=== PATIENT | female | born 1980 | race Hispanic/Latino ===

== ENCOUNTER 2018-01-17 18:18 | Inpatient (IN) | payer OTHER, MEDICAID ==
[2018-01-17] MEDS ORDERED: LACTATED RINGERS 1,000 ML IV ONE (19:27)
[2018-01-17] MEDS ORDERED: ZOFRAN IV ONE (19:28)
[2018-01-17 20:11] LABS: Hematocrit 40.5 % (30.3-42.9); Hemoglobin 12.9 gm/dl (10.1-14.3); Mean Corpuscular HGB Conc 32 % (30-34); Mean Corpuscular Hemoglobin 29 pg (28-32); Mean Corpuscular Volume 90 fl (79-97); Platelet Count 277 K/mm3 (140-440); Red Blood Count 4.53 M/mm3 (3.65-5.03); Red Cell Distribution Width 14.2 % (13.2-15.2)
[2018-01-17] MEDS: LACTATED RINGERS 1,000 ML IV SCH (20:16)
[2018-01-17 20:18] LABS: Bacteria,Urine 1+ /HPF (Negative); Bilirubin,Urine NEG (Negative); Blood,Urine NEG (Negative); Color,Urine Yellow (Yellow); Protein,Urine <15 mg/dL mg/dL (Negative)
[2018-01-17 20:30] LABS: Amphetamine Screen,Urine PRESUMPTIVE NEGATIVE; Benzodiazepines Screen,Urine PRESUMPTIVE NEGATIVE; Cannabinoid Screen,Urine PRESUMPTIVE NEGATIVE; Cocaine Screen,Urine PRESUMPTIVE NEGATIVE; Methadone Screen,Urine PRESUMPTIVE NEGATIVE; Opiate Screen,Urine PRESUMPTIVE NEGATIVE
[2018-01-17 20:35] LABS: Alanine Aminotransferase 81 units/L (7-56); Uric Acid 7.5 mg/dL (3.5-7.6)
[2018-01-17] MEDS: STADOL IV PRN (21:00)
[2018-01-17 21:47] LABS: Bilirubin,Urine NEG (Negative); Blood,Urine NEG (Negative); Color,Urine Yellow (Yellow); Mucus,Urine FEW /HPF; Renal Epithelial Cells,Urine 1 /LPF; Urobilinogen,Urine < 2.0 mg/dL (<2.0)
[2018-01-17] MEDS ORDERED: AMBIEN PO PRN (22:44)
[2018-01-17] MEDS: PROCARDIA XL PO SCH (23:15)
--- NOTE | 2018-01-18 04:50 | History and Physical Report ---
History of Present Illness Date of examination: 01/18/18 Date of admission: 01/17/18 20:03 Chief complaint: nausea and vomiting History of present illness: 37y/o @ 35+4 weeks with minimal care presents to triage with the complaint of nausea and vomiting. She is also experiencing irregular contractions. She denies vaginal bleeding or leakage of fluid. records are not available. The patient admits to a history of methamphetamine use approximately 2 weeks ago. During her evaluation in triage, the patient was noted to have elevated blood pressures. The patient was admitted for preeclampsia evaluation. LFTs slightly elevated with a normal platelet count. Past History Past Medical History: no pertinent history Past Surgical History: no surgical history Social history: smoking, other (methamphetamine) - Obstetrical History Expected Date of Delivery: 02/17/18 Actual Gestation: 35 Week(s) 5 Day(s) : 4 Para: 1 Hx # Term Pregnancies: 1 Number of Pregnancies: 0 Spontaneous Abortions: 0 Induced : 2 Number of Living Children: 1 Medications and Allergies Allergies Allergy/AdvReac Type Severity Reaction Status Date / Time No Known Allergies Allergy Verified 01/17/18 19:01 Active Meds: Active Medications Butorphanol Tartrate (Stadol) 2 mg IV Q4HR PRN PRN Reason: Labor Pain Last Admin: 01/17/18 21:00 Dose: 2 mg Lactated Ringer's (Lactated Ringers) 1,000 mls @ 125 mls/hr IV DIRECT [facility] Last Admin: 01/17/18 20:16 Dose: 125 mls/hr Nifedipine (Procardia Xl) 30 mg PO QDAY JACOB Last Admin: 01/17/18 23:15 Dose: 30 mg Zolpidem Tartrate (Ambien) 10 mg PO QHS PRN PRN Reason: Insomnia Last Admin: 01/17/18 23:15 Dose: 10 mg Review of Systems All systems: negative Gastrointestinal: abdominal pain, nausea, vomiting Genitourinary: contractions, no vaginal bleeding, no leakage of fluid - Vital Signs Vital signs: Vital Signs Pulse BP 79 182/103 01/17/18 19:11 01/17/18 19:11 Temp Pulse Resp BP Pulse Ox 98.0 F 77 18 132/78 01/17/18 19:45 01/18/18 04:32 01/17/18 21:00 01/18/18 04:32 - Physical Exam Breasts: Positive: deferred Cardiovascular: Regular rate Lungs: Positive: Clear to auscultation Abdomen: Positive: normal appearance Results Result Diagrams: 01/17/18 19:15 01/17/18 19:15 Abnormal lab results 01/17/18 01/17/18 Range/Units 19:15 19:15 AST 64 H (5-40) units/L ALT 81 H (7-56) units/L Lactate Dehydrogenase 323 H (91-180) units/L Urine pH 8.0 H (5.0-7.0) All other labs normal. Assessment and Plan - Patient Problems (1) Elevated blood pressure affecting , antepartum Current Visit: Yes Status: Acute Plan to address problem: admit for observation will initiate 24hr urine collection blood pressure monitoring (2) Nausea and vomiting Current Visit: Yes Status: Acute (3) Limited care, antepartum Current Visit: Yes Status: Acute
[2018-01-18] MEDS: STADOL IV PRN ×5 (05:45→23:52)
[2018-01-18] MEDS: LACTATED RINGERS 1,000 ML IV SCH ×2 (05:46→13:53)
[2018-01-18 07:58] LABS: BUN/Creatinine Ratio 9; Blood Urea Nitrogen 8 mg/dL (7-17); Calcium 8.2 mg/dL (8.4-10.2); Hemolysis Index 10
--- NOTE | 2018-01-18 08:47 | Progress Note ---
Assessment and Plan HD 2 with nausea and vomiting at 35 weeks. Patient has elevated liver enzymes that may be consistent with cholecystitis and or pancreatitis. Will order amylase and lipase to evaluate. Patient has no proteinuria in the face of elevated blood pressures. Continue current management Subjective - Subjective Date of service: 01/18/18 Principal diagnosis: IUP at 35 weeks. Nausea and vomiting Interval history: Patient is a 37 year old who presents at 35 weeks with nausea and vomiting. Patient has had one visit prior to this admission. She has a history of labor and possible hypertension Patient reports: movement normal Objective - Vital Signs Vital Signs: Vital Signs - 12hr 01/17/18 01/17/18 01/17/18 21:00 21:15 21:30 Temperature Pulse Rate 73 83 Respiratory 18 Rate Blood Pressure 160/91 144/79 Blood Pressure [Left] 01/17/18 01/17/18 01/17/18 22:01 22:31 23:02 Temperature Pulse Rate 75 69 69 Respiratory Rate Blood Pressure 139/85 157/86 162/77 Blood Pressure [Left] 01/17/18 01/18/18 01/18/18 23:32 00:01 00:32 Temperature Pulse Rate 74 84 91 H Respiratory Rate Blood Pressure 150/75 136/75 139/79 Blood Pressure [Left] 01/18/18 01/18/18 01/18/18 01:06 01:31 02:01 Temperature Pulse Rate 98 H 96 H 97 H Respiratory Rate Blood Pressure 132/77 137/80 137/83 Blood Pressure [Left] 01/18/18 01/18/18 01/18/18 02:31 03:01 03:32 Temperature Pulse Rate 99 H 93 H 83 Respiratory Rate Blood Pressure 133/78 132/76 120/74 Blood Pressure [Left] 01/18/18 01/18/18 01/18/18 04:01 04:32 05:01 Temperature Pulse Rate 79 77 79 Respiratory Rate Blood Pressure 130/67 132/78 143/75 Blood Pressure [Left] 01/18/18 01/18/18 01/18/18 05:40 06:01 06:31 Temperature Pulse Rate 82 87 81 Respiratory Rate Blood Pressure 124/70 128/65 123/68 Blood Pressure [Left] 01/18/18 01/18/18 01/18/18 07:01 07:33 07:37 Temperature 98.5 F Pulse Rate 87 80 77 Respiratory 18 Rate Blood Pressure 120/67 108/58 Blood Pressure 110/58 [Left] 01/18/18 01/18/18 07:40 08:40 Temperature Pulse Rate 77 81 Respiratory Rate Blood Pressure 110/58 126/64 Blood Pressure [Left] - Exam Breasts: deferred Lungs: Clear to auscultation Abdomen: Present: normal appearance, soft, normal bowel sounds Uterus: Present: normal, firm FHR: auscultation normal - Labs Labs: Abnormal Labs 01/17/18 01/17/18 01/18/18 19:15 19:15 07:10 Sodium 136 L Carbon Dioxide 20 L Calcium 8.2 L AST 64 H ALT 81 H Lactate Dehydrogenase 323 H Urine pH 8.0 H Laboratory Results - last 24 hr 01/17/18 01/17/18 01/17/18 19:15 19:15 19:15 WBC 10.9 RBC 4.53 Hgb 12.9 Hct 40.5 MCV 90 MCH 29 MCHC 32 RDW 14.2 Plt Count 277 Sodium Potassium Chloride Carbon Dioxide Anion Gap BUN Creatinine Estimated GFR BUN/Creatinine Ratio Glucose Uric Acid Calcium AST ALT Lactate Dehydrogenase Urine Color Yellow Urine Turbidity Clear Urine pH 8.0 H Ur Specific [place] 1.013 Urine Protein <15 mg/dl Urine Glucose (UA) Neg Urine Ketones Neg Urine Blood Neg Urine Nitrite Neg Urine Bilirubin Neg Urine Urobilinogen 2.0 Ur Leukocyte Esterase Mod Urine WBC (Auto) 1.0 Urine RBC (Auto) 3.0 U Epithel Cells (Auto) 3.0 Urine Bacteria (Auto) 1+ Ur Renal Epithelial Cell Urine Mucus Urine Opiates Screen Presumptive negative Urine Methadone Screen Presumptive negative Ur Barbiturates Screen Presumptive negative Ur Phencyclidine Scrn Presumptive negative Ur Amphetamines Screen Presumptive negative U Benzodiazepines Scrn Presumptive negative Urine Cocaine Screen Presumptive negative U Marijuana (THC) Screen Presumptive negative Drugs of Abuse Note Disclamer 01/17/18 01/17/18 01/18/18 19:15 21:18 07:10 WBC RBC Hgb Hct MCV MCH MCHC RDW Plt Count Sodium 136 L Potassium 4.3 Chloride 105.2 Carbon Dioxide 20 L Anion Gap 15 BUN 8 Creatinine 0.8 0.9 Estimated GFR > 60 > 60 BUN/Creatinine Ratio 9 Glucose 70 Uric Acid 7.5 Calcium 8.2 L AST 64 H ALT 81 H Lactate Dehydrogenase 323 H Urine Color Yellow Urine Turbidity Clear Urine pH 7.0 Ur Specific [place] 1.016 Urine Protein 30 mg/dl Urine Glucose (UA) Neg Urine Ketones Neg Urine Blood Neg Urine Nitrite Neg Urine Bilirubin Neg Urine Urobilinogen < 2.0 Ur Leukocyte Esterase Neg Urine WBC (Auto) 5.0 Urine RBC (Auto) 4.0 U Epithel Cells (Auto) 4.0 Urine Bacteria (Auto) Ur Renal Epithelial Cell 1 Urine Mucus Few Urine Opiates Screen Urine Methadone Screen Ur Barbiturates Screen Ur Phencyclidine Scrn Ur Amphetamines Screen U Benzodiazepines Scrn Urine Cocaine Screen U Marijuana (THC) Screen Drugs of Abuse Note
[2018-01-18] MEDS: PROCARDIA XL PO SCH (10:08)
[2018-01-18] MEDS: PEPCID IV SCH (10:20)
[2018-01-18 12:20] LABS: Lipase 19 units/L (13-60)
[2018-01-19] MEDS: PEPCID IV SCH ×3 (01:48→22:04)
[2018-01-19] MEDS: LACTATED RINGERS 1,000 ML IV SCH ×3 (01:48→19:09)
[2018-01-19] MEDS: PROCARDIA XL PO SCH (10:04)
[2018-01-19] MEDS: PHENERGAN PO PRN ×2 (10:13→18:01)
[2018-01-19] MEDS: STADOL IV PRN ×3 (10:16→21:02)
[2018-01-19] MEDS ORDERED: BRETHINE SUB-Q ONE ×2 (10:38→14:00)
--- NOTE | 2018-01-19 11:03 | Event Note ---
Date: 01/19/18 Called by nursing staff because patient began having contractions. Per nurse, patient was dilated 3cm. Terbutaline ordered for uterine relaxation. Staff concerned about NICU diversion status. But I advised staff that we will continue with current management until patient declares herself in labor.
[2018-01-20] MEDS: STADOL IV PRN (00:26)
[2018-01-20] MEDS ORDERED: STADOL IV PRN (00:29)
[2018-01-20] MEDS ORDERED: POLYCILLIN/NS 2 GM/100 ML 2 GM/100 ML BAG IV ONE ×2 (00:36→00:38)
[2018-01-20] MEDS: LACTATED RINGERS 1,000 ML IV SCH ×2 (03:08→05:04)
[2018-01-20 03:19] LABS: Hemoglobin 12.7 gm/dl (10.1-14.3); Mean Corpuscular HGB Conc 33 % (30-34); Mean Corpuscular Hemoglobin 28 pg (28-32); Mean Corpuscular Volume 86 fl (79-97); Platelet Count 236 K/mm3 (140-440); Red Blood Count 4.56 M/mm3 (3.65-5.03); Red Cell Distribution Width 14.3 % (13.2-15.2)
[2018-01-20] MEDS ORDERED: POLYCILLIN/NS 1 GM/50 ML 1 GM/50 ML BAG IV SCH (04:30)
[2018-01-20] MEDS ORDERED: PITOCin/NS 30 UNIT/500ML 30,000 MILLIUNITS/500 ML BAG IV ONE (04:43)
[2018-01-20] MEDS ORDERED: PITOCin/NS 20 UNIT/1000ML DRIP 20 UNITS/1,000 ML BAG IV SCH (05:00)
[2018-01-20] MEDS ORDERED: XYLOCAINE 2% INFILTRATI ONE ×2 (07:14→07:15)
--- NOTE | 2018-01-20 07:45 | Event Note ---
Date: 01/20/18 Received call from nursing staff that patient had SROM at 11:30 last evening. Patient is still 3 cm dilated. Will now treat and manage as active labor. Begin pitocin augmentation. Anticipate .
--- NOTE | 2018-01-20 07:48 | Procedure Note ---
OB Delivery Note - Delivery Date of Delivery: 01/20/18 Surgeon: MARITZA TOLBERT Estimated blood loss: 200cc - Vaginal Delivery presentation: vertex Delivery position: OA Intrapartum events: no care (minimal), labor-<37 weeks, PROM-> 1hr before delivery, gestational hypertension Delivery induction: none Delivery augmentation: pitocin Delivery monitor: external FHT, external uterine Route of delivery: Delivery placenta: spontaneous Delivery cord: 3 umbilical vessels Episiotomy: none Delivery laceration: 1st degree Delivery repair: chromic Anesthesia: none Delivery comments: Viable male delivered over intact perineum. No nuchal cord. Cord clamped and cut and placed on warmer as mother did not want baby on chest. Placenta delivered spontaneously and intact with 3vc. 1st degree laceration repaired with 2.-0 chromic. Excellent hemostasis. Patient tolerated procedure well. - Infant A at 1 minute: 8 at 5 minutes: 9 Gender: Male (6 pounds 3 ounces 2811 grams)
[2018-01-20] MEDS: PROCARDIA XL PO SCH (09:02)
[2018-01-20] MEDS: PEPCID IV SCH (09:03)
[2018-01-20] MEDS ORDERED: LANSINOH TP PRN (10:05)
[2018-01-20] MEDS ORDERED: TUCKS PAD TP PRN (10:05)
[2018-01-20] MEDS ORDERED: DULCOLAX PR PRN (10:05)
[2018-01-20] MEDS ORDERED: BENADRYL PO PRN (10:05)
[2018-01-20] MEDS ORDERED: TYLENOL PO PRN (10:05)
[2018-01-20] MEDS ORDERED: MILK OF MAGNESIA PO PRN (10:05)
[2018-01-20] MEDS: NORCO 5/325 PO PRN (10:35)
[2018-01-20] MEDS ORDERED: SODIUM CHLORIDE FLUSH SYRINGE 10 ML IV PRN (11:00)
[2018-01-20 11:04] LABS: Uric Acid 7.1 mg/dL (3.5-7.6)
[2018-01-20] MEDS: MOTRIN PO SCH ×3 (12:25→23:48)
[2018-01-20] MEDS: PRENATAL VITAMIN PO SCH (12:25)
[2018-01-20 20:27] LABS: Hematocrit 30.3 % (30.3-42.9); Hemoglobin 9.8 gm/dl (10.1-14.3)
[2018-01-20] MEDS: COLACE PO SCH (23:48)
[2018-01-21] MEDS: MOTRIN PO SCH ×5 (06:07→23:09)
[2018-01-21] MEDS: NORCO 5/325 PO PRN (08:08)
[2018-01-21] MEDS: PROCARDIA XL PO SCH (11:59)
[2018-01-21] MEDS: PRENATAL VITAMIN PO SCH (12:00)
[2018-01-21] MEDS: ZOFRAN IV PRN (14:51)
--- NOTE | 2018-01-21 16:13 | Progress Note ---
Assessment and Plan PPD 1 s/p at 36 weeks. Patient is complaining of nausea and inability to eat although she has not had any active vomiting. Patient has palpable mass in mid epigastric area that is tender to touch. Will consult general surgery for possible hernia or other abdominal pathology. Subjective - Subjective Date of service: 01/21/18 Principal diagnosis: IUP at 35 weeks. Nausea and vomiting Interval history: Patient is a 37 year old who presents at 35 weeks with nausea and vomiting. Patient has had one visit prior to this admission. She has a history of labor and possible hypertension Patient reports: voiding normally, appetite poor, nauseated, other (not feeling well) : doing well Objective - Vital Signs Latest vital signs: Vital Signs Temp Pulse Resp BP BP Pulse Ox 01/21/18 08:08 20 01/21/18 07:47 97.8 F 54 L 16 135/77 98 01/21/18 00:22 64 137/76 95 01/21/18 00:20 98.7 F 68 20 137/76 95 01/20/18 16:37 97.9 F 58 L 20 147/79 98 Intake and Output 01/21/18 01/21/18 01/21/18 06:59 14:59 22:59 Intake Total 420 360 Balance 420 360 Intake: Oral 420 360 Other: Total, Intake Amount 200 360 # Voids Void 1 1 - Exam Breasts: Present: deferred Cardiovascular: Present: Regular rate, Normal S1, Normal S2 Lungs: Present: Clear to auscultation Abdomen: Present: normal appearance, soft, mass (palpable round mass in mid epigastric region) Uterus: Present: normal, fundal height below umbilicus Extremities: Present: normal Deep Tendon Reflex Grade: Normal +2 - Labs Labs: Abnormal lab results 01/20/18 Range/Units 19:49 Hgb 9.8 L (10.1-14.3) gm/dl
--- NOTE | 2018-01-21 16:54 | Consultation ---
History of Present Illness Consult date: 01/21/18 Requesting physician: MARITZA TOLBERT Chief complaint: ABD PAIN - History of present illness History of present illness: 37 yo F who presented to the hospital to deliver her baby. She has a spontaneous vaginal yesterday. The patient c/o epigastric abd pain, which is sharp, constant and will radiate to both sides of her abdomen at times. At times this feels like a "knot". The pain has been present throughout and has caused nausea. She states she felt like this was heartburn and treated with all types of antacids without relief. She denies having fevers. She did not have pain like this prior to her . She c/o that the nausea inhibits her from eating at times. She states the pain is present before eating and is exacerbated by eating. She denies taking NSAIDs, ASA. Past History Past Medical History: No medical history Past Surgical History: No surgical history Social history: smoking (1 pack per day), other (methamphetamine). denies: alcohol abuse Family history: no significant family history Medications and Allergies Allergies Allergy/AdvReac Type Severity Reaction Status Date / Time No Known Allergies Allergy Verified 01/17/18 19:01 Home Medications Medication Instructions Recorded Confirmed Last Taken Type Pnv,Calcium 72/Iron/Folic Acid 1 tab PO DAILY 01/19/18 01/19/18 01/17/18 09:00 History [Preplus Ca-Fe 27 mg-FA 1 mg Tb] HYDROcodone/ACETAMINOPHEN [[place] 1 each PO Q6H #20 tablet 01/20/18 Unknown Rx 5-325 Tablet] Ibuprofen [Motrin] 600 mg PO Q8H PRN #30 tablet 01/20/18 Unknown Rx Active Meds: Active Medications Acetaminophen (Tylenol) 650 mg PO Q4H PRN PRN Reason: Pain MILD(1-3)/Fever >100.5/VÁZQUEZ Acetaminophen/Hydrocodone Bitart ([place] 5/325) 2 each PO Q6H PRN PRN Reason: Pain, Moderate (4-6) Last Admin: 01/21/18 08:08 Dose: 2 each Bisacodyl (Dulcolax) 10 mg [place] BID PRN PRN Reason: Constipation Diphenhydramine HCl (Benadryl) 25 mg PO Q6H PRN PRN Reason: Itching Docusate Sodium (Colace) 100 mg PO BID [facility] Last Admin: 01/20/18 23:48 Dose: 100 mg Oxytocin/Sodium Chloride (Pitocin/Ns 30 Unit/500ml) 30,000 milliunits in 500 mls @ 1 mls/hr IV DIRECT ONE; 1 MILLIUNITS/MIN PRN Reason: Protocol Stop: 02/10/18 00:42 Last Admin: 01/20/18 04:50 Dose: 4 milliunits/min, 4 mls/hr Ibuprofen (Motrin) 600 mg PO Q6H [facility] Last Admin: 01/21/18 11:58 Dose: 600 mg Magnesium Hydroxide (Milk Of Magnesia) 30 ml PO HS PRN PRN Reason: Constipation Multi-Ingredient Ointment (Lansinoh) 1 applic TP PRN PRN PRN Reason: Sore Nipples Multivitamins/Iron/Calcium ( Vitamin) 1 each PO QDAY [facility] Last Admin: 01/21/18 12:00 Dose: 1 each Nifedipine (Procardia Xl) 30 mg PO QDAY [facility] Last Admin: 01/21/18 11:59 Dose: 30 mg Ondansetron HCl (Zofran) 4 mg IV Q8H PRN PRN Reason: Nausea And Vomiting Last Admin: 01/21/18 14:51 Dose: 4 mg Promethazine HCl (Phenergan) 25 mg PO Q6H PRN PRN Reason: Nausea And Vomiting Sodium Chloride (Sodium Chloride Flush Syringe 10 Ml) 10 ml IV PRN PRN PRN Reason: flush Witch Shannan/Glycerin (Tucks Pad) 1 each TP PRN PRN PRN Reason: Hemorrhoid/cleansing/soothing Last Admin: 01/21/18 06:08 Dose: 1 each Review of Systems All systems: negative (10 pt ROS was performed and negative except for that listed in HPI) Exam Vital Signs Pulse BP 79 182/103 01/17/18 19:11 01/17/18 19:11 Narrative exam: Gen: AAOx3. NAD ENT: no scleral icterus or conjunctival pallor. poor dentition CV: S1 ,S2 +, no m/r/g Resp: CTAB, no w/r/r Abd: soft, ND, fullness in lower abd and soreness. Point TTP in epigastrum inferior to xyphoid process. No rebound, rigidity, guarding. No TTP in RUQ. No palpable masses. Ext: no c/c/e Results - Labs 01/20/18 19:49 01/18/18 07:10 Abnormal lab results 01/20/18 Range/Units 19:49 Hgb 9.8 L (10.1-14.3) gm/dl Assessment and Plan 37 yo F with epigastric abd pain Plan: 1. ? gastric related vs gallbladder related pain. Will obtain RUQ u/s while patient is admitted 2. continue current diet 3. PRN nausea and pain control 4. add protonix Daily 5. will likely need outpatient GI follow up 6. will see the patient in am and discuss u/s results Thank you for this consultation, please call with questions or concerns.
[2018-01-21] MEDS: PHENERGAN PO PRN (21:35)
--- NOTE | 2018-01-21 21:42 | Ultrasound Report ---
FINAL REPORT PROCEDURE: US ABDOMEN LIMITED TECHNIQUE: Real-time sonography in multiple planes of the gallbladder fossa and CBD with imaging of the adjacent liver, pancreas, and right kidney was performed with image documentation. CPT 35756 HISTORY: epigastric abd pain COMPARISON: No prior studies are available for comparison. FINDINGS: Liver: Liver echotexture is heterogeneous. There is no discrete mass.. Gallbladder: There are tiny echogenic foci in the gallbladder which could be polyps. There are no definite stones. There is a possible 8 millimeter sludge ball in the gallbladder neck. Gallbladder wall is thickened at 3.8 millimeters. There is no pericholecystic fluid.. Intrahepatic bile ducts: Normal . Extrahepatic bile ducts: Common bile duct is normal in caliber.. Pancreas: Normal as visualized with suboptimal depiction of the pancreatic tail. Right kidney: Normal echotexture. No focal renal mass, calculus, or hydronephrosis. Other: No free fluid. IMPRESSION: There are tiny echogenic foci in the gallbladder which could be polyps. There are no definite stones. There is a possible 8 millimeter sludge ball in the gallbladder neck. Gallbladder wall is thickened at 3.8 millimeters. There is no pericholecystic fluid.. Common bile duct is normal in caliber..
[2018-01-21] MEDS ORDERED: MORPHINE IV PRN (23:49)
[2018-01-22] MEDS: D5LR 1,000 ML IV SCH ×3 (01:35→23:03)
[2018-01-22] MEDS: PHENERGAN PO PRN (05:45)
--- NOTE | 2018-01-22 07:52 | Progress Note ---
Assessment and Plan - Patient Problems (1) Elevated blood pressure affecting , antepartum Current Visit: Yes Status: Acute (2) Nausea and vomiting Current Visit: Yes Status: Acute Plan to address problem: Awaiting general surgery evaluation (3) Limited care, antepartum Current Visit: Yes Status: Acute Subjective - Subjective Date of service: 01/22/18 Principal diagnosis: IUP at 35 weeks. Nausea and vomiting Interval history: The patient is to remain hospitalized secondary to nausea and vomiting. Right upper quadrant ultrasound was performed with findings of sludge and a polyp. Attempted to converse with patient this morning but she was unwilling to adequately answer questions. The patient would not uncover her head during the questioning. She states that she is still having abdominal pain but was unable to communicate the last time she had emesis. The patient scheduled to be evaluated by general surgery today. The patient can be discharged home if she is not a surgical candidate at this time. Patient reports: voiding normally, no appetite normal : doing well Objective - Vital Signs Latest vital signs: Vital Signs Temp Pulse Resp BP BP Pulse Ox 01/22/18 01:00 98.3 F 73 18 123/78 01/21/18 17:01 98.4 F 49 L 18 131/70 131/70 98 01/21/18 08:08 20 Intake and Output 01/21/18 01/22/18 01/22/18 22:59 06:59 14:59 Intake Total 170 50 Output Total 50 Balance 120 50 Intake: Oral 120 Intake, Free Water 50 50 Output: Emesis 50 Other: Total, Intake Amount 120 Total, Output Amount 50 # Voids Void 1 1
[2018-01-22] MEDS: ZOFRAN IV PRN (09:01)
[2018-01-22 09:47] LABS: Basophils # (Auto) 0.1 K/mm3 (0.0-0.1); Basophils % (Auto) 0.5 % (0.0-1.8); Eosinophils % (Auto) 0.3 % (0.0-4.3); Hematocrit 35.7 % (30.3-42.9); Hemoglobin 11.7 gm/dl (10.1-14.3); Lymphocytes # (Auto) 3.3 K/mm3 (1.2-5.4); Lymphocytes % (Auto) 31.3 % (13.4-35.0); Mean Corpuscular HGB Conc 33 % (30-34); Mean Corpuscular Hemoglobin 28 pg (28-32); Mean Corpuscular Volume 85 fl (79-97); Monocytes # (Auto) 0.4 K/mm3 (0.0-0.8); Monocytes % (Auto) 3.5 % (0.0-7.3); Platelet Count 293 K/mm3 (140-440); Red Cell Distribution Width 14.2 % (13.2-15.2)
[2018-01-22] MEDS ORDERED: PROTONIX PO SCH (10:00)
[2018-01-22 10:01] LABS: Alanine Aminotransferase 21 units/L (7-56); Albumin 2.7 g/dL (3.9-5); BUN/Creatinine Ratio 9; Blood Urea Nitrogen 6 mg/dL (7-17); Calcium 8.3 mg/dL (8.4-10.2); Hemolysis Index 3
[2018-01-22] MEDS: COLACE PO SCH ×2 (10:06→23:03)
[2018-01-22] MEDS: MOTRIN PO SCH (10:06)
[2018-01-22] MEDS: PROCARDIA XL PO SCH (10:07)
[2018-01-22] MEDS: PRENATAL VITAMIN PO SCH (10:07)
--- NOTE | 2018-01-22 12:36 | Progress Note ---
Assessment and Plan 37 yo F with epigastric abd pain Plan: 1. ? gastric related vs gallbladder related pain. RUQ u/s does not show stones, but thickening of GB wall up to 3.8 mm at certain points, no pericholecystic fluids, a possible sludge ball in neck of gallbladder. Will obtain HIDA scan. I spoke with nuc med technologist - will perform HIDA at 3 pm because patient received morphine this am 2. NPO except meds 3. PRN nausea and pain control 4. PPI daily 5. GI consult 6. IV fluid 7. Await results of HIDA scan Thank you for this consultation, please call with questions or concerns. Subjective Date of service: 01/22/18 Narrative: Pt seen and examined. still c/o epigastric pain but mildly improved today. + nausea and 1 episode of emesis overnight. Patient states laying on her left side helps with the nausea, but laying on her back or right side makes the nausea worse. No appetite. No f/c, CP, SOB. Objective Vital Signs - 12hr 01/22/18 01/22/18 01:00 08:06 Temperature 98.3 F 99.0 F Pulse Rate 73 70 Respiratory 18 16 Rate Blood Pressure 151/89 Blood Pressure 123/78 [Left] O2 Sat by Pulse 97 Oximetry - General physical appearance Narrative Exam: Gen: AAOx3. NAD Resp: even and unlabored CV: s1, S2+ Abd: soft, ND, +epigastric TTP, mild, no r/r/g Ext: no c/c/e - Labs 01/22/18 09:27 01/22/18 09:27 Diabetes panel 01/22/18 Range/Units 09:27 Sodium 130 L (137-145) mmol/L Potassium 4.1 (3.6-5.0) mmol/L Chloride 94.3 L (98-107) mmol/L Carbon Dioxide 23 (22-30) mmol/L BUN 6 L (7-17) mg/dL Creatinine 0.7 (0.7-1.2) mg/dL Glucose 87 (65-100) mg/dL Calcium 8.3 L (8.4-10.2) mg/dL AST 17 (5-40) units/L ALT 21 (7-56) units/L Alkaline Phosphatase 380 H (35-129) units/L Total Protein 5.2 L (6.3-8.2) g/dL Albumin 2.7 L (3.9-5) g/dL Calcium panel 01/22/18 Range/Units 09:27 Calcium 8.3 L (8.4-10.2) mg/dL Albumin 2.7 L (3.9-5) g/dL Pituitary panel 01/22/18 Range/Units 09:27 Sodium 130 L (137-145) mmol/L Potassium 4.1 (3.6-5.0) mmol/L Chloride 94.3 L (98-107) mmol/L Carbon Dioxide 23 (22-30) mmol/L BUN 6 L (7-17) mg/dL Creatinine 0.7 (0.7-1.2) mg/dL Glucose 87 (65-100) mg/dL Calcium 8.3 L (8.4-10.2) mg/dL Adrenal panel 01/22/18 Range/Units 09:27 Sodium 130 L (137-145) mmol/L Potassium 4.1 (3.6-5.0) mmol/L Chloride 94.3 L (98-107) mmol/L Carbon Dioxide 23 (22-30) mmol/L BUN 6 L (7-17) mg/dL Creatinine 0.7 (0.7-1.2) mg/dL Glucose 87 (65-100) mg/dL Calcium 8.3 L (8.4-10.2) mg/dL Total Bilirubin 0.20 (0.1-1.2) mg/dL AST 17 (5-40) units/L ALT 21 (7-56) units/L Alkaline Phosphatase 380 H (35-129) units/L Total Protein 5.2 L (6.3-8.2) g/dL Albumin 2.7 L (3.9-5) g/dL
[2018-01-22] MEDS: PROTONIX IV SCH (14:39)
--- NOTE | 2018-01-22 16:48 | Nuclear Medicine Report ---
FINAL REPORT EXAM: NM HEPATOBILIARY WO CCK HISTORY: abd pain, r/o cholecystitis TECHNIQUE: Nuclear hepatobiliary scan Study performed with intravenous administration technetium 99 M mebrofenin with imaging obtained up to 90 minute delay PRIORS: Correlated with the prior ultrasound January 21, 2018 FINDINGS: There is prompt visualization of the liver parenchyma following administration the radiotracer. Activity seen within the common duct at 10 minute and within the gallbladder at 20 minute delay a activity present within the common bile duct at 45 minutes. Sixty-nine the minutes there is some activity present within the proximal duodenum with continued activity in the gallbladder and common bile duct. IMPRESSION: No evidence for acute cholecystitis or cystic duct obstruction. No evidence for common duct obstruction. Some delay in excretion noted may reflect chronic cholecystitis
[2018-01-23] MEDS: COLACE PO SCH ×2 (00:04→10:53)
[2018-01-23] MEDS: MOTRIN PO SCH ×3 (05:44→18:11)
[2018-01-23] MEDS: PROTONIX IV SCH (10:30)
[2018-01-23] MEDS: PROCARDIA XL PO SCH (10:54)
[2018-01-23] MEDS: PRENATAL VITAMIN PO SCH (10:54)
--- NOTE | 2018-01-23 13:01 | Progress Note ---
Assessment and Plan - Patient Problems (1) Elevated blood pressure affecting , antepartum Current Visit: Yes Status: Acute (2) Nausea and vomiting Current Visit: Yes Status: Acute Plan to address problem: Significant improvement in clinical status Discharge home (3) Limited care, antepartum Current Visit: Yes Status: Acute Subjective - Subjective Date of service: 01/23/18 Principal diagnosis: IUP at 35 weeks. Nausea and vomiting Interval history: The patient looks and feels much better today. She denies any additional nausea and vomiting. The patient admits that she has had a regular diet. She had a HIDA scan that was performed without evidence of acute cholecystitis or obstruction. Patient reports: appetite normal, voiding normally, pain well controlled [place]: doing well Objective - Vital Signs Latest vital signs: Vital Signs Temp Pulse Resp BP Pulse Ox 01/23/18 08:15 97.7 F 65 22 110/62 96 01/23/18 00:35 98.4 F 57 L 18 125/61 96 01/22/18 17:53 98.7 F 52 L 16 121/61 97 Intake and Output 01/22/18 01/23/18 01/23/18 22:59 06:59 14:59 Intake Total 1240 240 240 Balance 1240 240 240 Intake: IV 1000 D5lr 1,000 ml @ 125 mls/ 1000 hr IV DIRECT JACOB Rx#: [id number] Oral 240 240 240 Other: Total, Intake Amount 240 120 120 # Voids Void 1 1 1 - Exam Abdomen: Present: normal appearance, soft
--- NOTE | 2018-01-23 13:03 | Discharge Summary ---
Providers - Providers Date of Admission: 01/19/18 13:14 Date of discharge: 01/23/18 Attending physician: MARITZA TOLBERT 01/21/18 15:12 Consult to Physician [CONS] Urgent Consulting Provider: CLAUDIA GIVENS Reason For Exam: abdominal mass Place consult to:: Dr. Givens Notified:: yes Phone number called:: [phone] Was contact made?: Yes Time called:: 15:17 01/22/18 12:32 Consult to Physician [CONS] Routine Consulting Provider: JANETTE MONTERROSO Reason For Exam: abd pain, n/v Primary care physician: MARITZA TOLBERT Hospitalization Reason for admission: active labor Delivery: complications: other (abdominal pain and nausea and vomiting) Discharge diagnosis: IUP at term delivered baby: male Hospital course: The patient was admitted in active labor and had a successful vaginal delivery. Her course was complicated by a retractable nausea and vomiting. The patient received a general surgery evaluation with findings of chronic cholecystitis. No evidence of any active disease or obstruction. The patient gradually had improvement in symptoms and was able to tolerate a regular diet at the time of discharge. Condition at discharge: Good Disposition: [id number] TO HOME OR SELFCARE - Discharge Diagnoses (1) Elevated blood pressure affecting , antepartum Status: Acute (2) Nausea and vomiting Status: Acute (3) Limited care, antepartum Status: Acute Plan - Discharge Medications Prescriptions: HYDROcodone/ACETAMINOPHEN [[place] 5-325 Tablet] 1 each PO Q6H #20 tablet Ibuprofen [Motrin] 600 mg PO Q8H PRN #30 tablet PRN Reason: Pain NIFEdipine XL [Procardia Xl] 30 mg PO QDAY #30 tablet Pantoprazole [Protonix] 40 mg PO QDAY #30 tablet - Provider Discharge Summary Activity: no sex for 6 weeks, no heavy lifting 4 weeks, no strenuous exercise Diet: routine Instructions: routine Additional instructions: [] Smoking cessation referral if applicable(refer to patient education folder for contact #) [] Refer to [facility] Booklet Call your doctor immediately for: * Fever > 100.5 * Heavy vaginal bleeding ( >1 pad per hour) * Severe persistent headache * Shortness of breath * Reddened, hot, painful area to leg or breast * Schedule follow-up visit with Dr. Tolbert in 4 weeks - Follow up plan
--- NOTE | 2018-01-23 13:24 | Event Note ---
Date: 01/23/18 Reviewed results of HIDA scan - no evidence of acute cholecystitis, possible chronic cholecystitis. Patient afebrile overnight and no emesis recorded. Repeat LFTs normal. Discussed with Dr. Trimble who states patient looked well this am without complaints and is tolerating a diet. Patient is being discharged from the [facility] to home. Pt may follow up with me as outpatient if she chooses to have an elective cholecystectomy. Thank you for this consultation.
[2018-01-23 18:09] VITALS: BP 142/80
== END 2018-01-23 18:00 | disposition home or self-care (01) | DRG 775 ==
LOC: TRG 18:18 → LD 20:03 → OBSVTOIN 01-19 13:14 → OB 01-20 09:35
PROVIDERS: ADMIT Obstetrics & Gynecology; ATTEND Obstetrics & Gynecology
PROC: 10E0XZZ Delivery of Products of Conception, External Approach (ICD-10-PCS; principal; 2018-01-20)
PROC: 0HQ9XZZ Repair Perineum Skin, External Approach (ICD-10-PCS; 2018-01-20)
DX: O60.14X0 Preterm labor third trimester with preterm delivery third trimester, not applicable or unspecified (principal); O99.324 Drug use complicating childbirth; Z37.0 Single live birth; O70.0 First degree perineal laceration during delivery; O13.4 Gestational [pregnancy-induced] hypertension without significant proteinuria, complicating childbirth; Z3A.35 35 weeks gestation of pregnancy; O99.334 Smoking (tobacco) complicating childbirth; F17.200 Nicotine dependence, unspecified, uncomplicated; F15.10 Other stimulant abuse, uncomplicated
CPT/HCPCS: 36415; 59025; 76705; 78226; 80048; 80053; 80307; 81001; 82150; 82565; 83615; 83690; 84156; 84450; 84460; 84550; 85014; 85018; 85025; 85027; 86592; 86850; 86900; 86901; 88307; 96360; A9537; C9113; G0378; J0290; J0595; J2270; J2405; J2590; J3105; J7120; J7121; Q0169